=== PATIENT | female | born 1975 | race African-American/Black ===

== ENCOUNTER 2019-08-16 21:26 | Emergency (ER) | payer OTHER ==
[2019-08-16] MEDS ORDERED: KETOROLAC TROMETHAMINE 30MG/ML ONE (21:43)
[2019-08-16] MEDS ORDERED: ACETAMINOPHEN-CODEINE 300/30MG TAB ONE (21:44)
== END 2019-08-16 22:40 | disposition home or self-care (01) ==
LOC: EDH 21:26
DX: S90.01XA Contusion of right ankle, initial encounter (principal); Z90.710 Acquired absence of both cervix and uterus; Z98.51 Tubal ligation status; W50.0XXA Accidental hit or strike by another person, initial encounter; Y93.89 Activity, other specified; Y92.009 Unspecified place in unspecified non-institutional (private) residence as the place of occurrence of the external cause; Y99.8 Other external cause status
CPT/HCPCS: 29515; 73610; 96372; 99283; J1885